=== PATIENT | female | born 1970 | race Caucasian/White ===

== ENCOUNTER → 2018-11-25 09:10 | Outpatient (CLI) | payer SELFPAY ==
[2018-11-25 09:39] LABS: Hemoglobin 14.5 g/dL (12.0-15.0); Mean Corp Hgb Conc 33.7 g/dL (32-36); Mean Corpuscular Hgb 31.9 pg (27.0-32.0); Mean Corpuscular Volume 94.7 fL (81-99); Mean Platelet Vol. 9.5 fl (6.2-12.0); Platelet Count 230 K/mm3 (150-450); RBC Distribution Width CV 11.9 % (11.6-14.6); RBC Distribution Width SD 41.5 fl (35.1-43.9); Red Blood Count 4.54 M/mm3 (4.2-5.4); White Blood Count 7.5 K/mm3 (4.4-11.0)
[2018-11-25 09:40] LABS: Color, Urine Straw (Yellow); Glucose, Dipstick Normal (Normal); Ketone-Dipstick Negative (Negative); Leukocyte Esterase-Dipstick Negative /ul (Negative); Nitrite-Dipstick Negative (Negative); Occult Blood-Urine Negative /ul (Negative); Protein-Dipstick Negative (Negative); Specific Gravity, Urine 1.005 (1.002-1.030); Urine Bilirubin Dipstick Negative (Negative); Urine Clarity Clear (Clear); Urine Urobilinogen Normal (Normal)
[2018-11-25 10:13] LABS: AST(SGOT) 17 U/L (15-37); Alanine Aminotransfer ALT/SGPT 34 U/L (13-56); Albumin, Serum 3.8 g/dL (3.2-5.0); Alkaline Phosphatase 51 U/L (45-117); Anion Gap 7 (5-15); BUN 18 mg/dL (7-18); BUN/Creat Ratio 23.1 RATIO (10-20); Calcium,Total 8.8 mg/dL (8.5-10.1); Chloride 109 mmol/L (98-107); Cholesterol 149 mg/dL (200); Creatinine, Serum 0.78 mg/dL (0.55-1.02); EST Glomerular Filtration Rate 83 mL/min (>60); Est Glom Filt Rate - Afr Amer 101 mL/min (>60); Globulin 3.8 g/dL (2.2-4.2); Glucose 98 mg/dL (74-106); High Density Lipoprotein 57 mg/dL; Potassium 4.1 mmol/L (3.5-5.1); Protein, Total 7.6 g/dL (6.4-8.2); Sodium Level 142 mmol/L (136-145); Thyroid Stim Hormone (TSH) 1.16 uIU/mL (0.358-3.74); Triglycerides 95 mg/dL; Very Low Density Lipoprotein 19 mg/dL (5-40)
[2018-11-25 10:14] LABS: Vitamin D,25 Hydroxy 32.5 ng/mL (29.95-100.01)
[2018-11-25 10:33] LABS: Hemoglobin A1c 5.8 % (4.2-6.3)
--- NOTE | 2018-11-26 18:05 | BFS_ITS ---
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 The maximal outside diameter of the proximal aorta The right maximum ICA velocity is 83.9/20.0 cm/s. measures 1.32 cm in the longitudinal axis. There is insignificant plaque formation noted on The maximal outside diameter of the proximal aorta the right side. measures 1.33 x 1.47 cm in the cross-sectional The left ECA velocity is less than 125 cm/s. axis. The left maximum ICA velocity is 64.3/26.5 cm/s. There is insignificant plaque formation noted on the left side. Medical History and Assessment The heart rate is 82 beats per minute. The heart rhythm is regular. The right blood pressure is 142/90. The left blood pressure is 138/90. The assessment was performed by Kati Perez RVT. Interpretation Summary Normal carotid artery screening (0 to 15% narrowing). Normal aortic ultrasound exam. Ordering Physician: Mary Anne Villalobos Performed By: Dimitry Perez RVT
--- NOTE | 2018-11-28 07:45 | EKG12_ITS ---
Test Reason : EXEC PHYSICAL Blood Pressure : / mmHG Vent. Rate : 085 BPM Atrial Rate : 085 BPM P-R Int : 156 ms QRS Dur : 080 ms QT Int : 362 ms P-R-T Axes : 048 020 030 degrees QTc Int : 430 ms Normal sinus rhythm Nonspecific ST abnormality Abnormal ECG Confirmed by LEOLA SCHMITT, ANAMIKA ([id number]), field map editor U[facility] MCFADDEN ([id number]) on 11/28/2018 2:14:09 PM Referred By: Mary Anne Villalobos Confirmed By:ANAMIKA BHAGAT MD
== END ==
PROVIDERS: Referring Provider Internal Medicine; Visit Provider Internal Medicine
DX: Z00.00 Encounter for general adult medical examination without abnormal findings (principal)
CPT/HCPCS: 80053; 80061; 81002; 82306; 83036; 83090; 84443; 85027; 93005

== ENCOUNTER 2019-02-25 08:19 | Day surgery (SDC) | payer SELFPAY ==
[2018-12-22 10:50] VITALS: BMI 31.2
--- NOTE | 2018-12-22 11:18 | HP_ITS ---
Intake Vital Signs 12/22/18 Body Mass Index (BMI) 31.2 12/22/18 Height 5 ft 4.5 in 12/22/18 Weight: 181 lb 12/22/18 Body Mass Index (BMI) 30.6 12/22/18 Blood Pressure 159/93 H 12/22/18 Blood Pressure Location Rt brachial 12/22/18 Respiratory Rate 18 12/22/18 Pulse Rate 83 12/22/18 Pulse Source Monitor 12/22/18 Temperature 98.2 F 12/22/18 Pulse Ox 97 12/22/18 Oxygen Delivery Method room air Intake Visit Reasons: abd pain/change in bowel habits Chief Complaint: Executive Physical Heart Surgeon Required: No Is patient in pain?: No Allergies No Known Allergies Allergy (Verified 12/22/18 10:50) Medications Calcium PO 11/27/18 [History Confirmed 12/22/18] Magnesium PO 11/27/18 [History Confirmed 12/22/18] omega 3,6,9 combination no.7 PO 11/27/18 [History Confirmed 12/22/18] PFSH Medical History Thyroid disease (Chronic) Goiter (Chronic) Back problem (Chronic) No history of Colonoscopy (Acute) Surgical History History of section (Acute) Family History Mother Hypertension Sister Hypertension Brother Hypertension Grandfather Esophageal cancer Grandmother CVA (cerebral vascular accident) Alzheimer disease Grandfather , Upper 80's Respiratory disease Father Benign colon polyp Social History (Updated 12/22/18 @ 11:18 by Amberly Lafleur MD) Smoking Status: Never smoker alcohol intake: never substance use type: does not use what type of physical activity do you participate in: walking frequency: 1-2 times per week HPI HPI HPI: TRINIDAD HIGGINS, is a 48 F who presents to the office today for HPI HPI Surgical H&P: Yes HPI: TRINIDAD HIGGINS, is a 48 F who presents to the office today for colonoscopy due to change of bowel habits alternating between constipation and diarrhea. Patient states this has gotten worse in the last year. She does have occasional cramping maybe once or twice a month with the diarrhea which is only brief and resolves on its own. Patient states that constipation may last for 2 to 3 days but may only occur once every 2 weeks. Patient is not sure much fiber she gets in her diet but does not think she gets enough. Patient does take magnesium daily. Patient denies any family history of colon cancer. Patient has never had a previous colonoscopy. ROS General General: No weight change, appetite, fatigue, colon cancer, breast cancer or weakness HEENT HEENT: No difficulty swallowing, eye injury, eye surgery, swollen glands or hoarseness Endo Endocrine: Yes thyroid disease; no diabetes mellitus, thyroid cancer, Hair loss, heat intolerance or cold intolerance Skin Skin: No rash or changing moles Breast Breast: No left breast lump, right breast lump, nipple discharge, breast pain, abnormal mammogram, abnormal US or breast enlargement Musc Musculoskeletal: Yes back problems; no arthritis, rheumatoid arthritis, gout or joint pain Cardio Cardiovascular: No murmur, pacemaker, heart disease, atrial fibrillation, high blood pressure, heart attack, heart stent, palpitations, shortness of breat with exertion or chest pain Psych Psychiatric: No depression, anxiety or hearing voices Resp Respiratory: No shortness of breath, No sleep apnea, No cough, No COPD, No asthma, No emphysema, No wheezing Gastro Gastrointestinal: Yes abdominal pain, No nausea or vomiting, Yes diarrhea, Yes constipation, No blood in stool, No acid reflux, No hemorrhoids, No ulcers, No gallbladder problem, No black,tarry stools Reji Hematologic: No blood thinners, No blood disorders, No bleeding, No anemia, No blood clots Neuro Neurologic: No system reviewed and no additional complaints, except as docu, No as per HPI, No abnormal walking, No abnormal hearing, No abnormal movements, No abnormal speech, No behavioral changes, No burning sensations, No confusion, No seizure-like activity, No unsteadiness, No dizziness, No localized weakness, No frequent falls, No headache(s), No lack of coordination, No loss of vision, No memory loss, No numbness, No other visual disturbances, No radiating pain, No restless legs, No sensory deficit, No fainting, No tingling, No tremor(s), No weakness, No other Exam Const General: cooperative, comfortable, no acute distress Chest Breast Palpation: No nipple discharge Resp Effort & Inspection: normal respiratory effort Cardio Rate: regular rate Heart Sounds: no murmurs GI Inspection: non-distended Palpation: soft, no guarding, nontender Assessment & Plan Problems 1. Constipation K59.00 2. Diarrhea R19.7 3. Screening for colon cancer Z12.11 Plan Discussed with patient I recommend her getting increase fiber in her diet which is about 25 g daily. This may improve her bowel habits which currently now alternate between diarrhea and constipation. Suggested supplements of high- fiber oatmeal, fiberwell vitafusion Gummies?2 Gummies equal 5 g, fiber one bars, etc. I have discussed the above with the patient. I have offered the patient colonoscopy for evaluation. I have explained the risks/benefits of the procedure and described the procedure. I have discussed the risks with the patient, including but not limited to: infection, bleeding, perforation of the GI tract requiring emergency surgery, inability to complete the procedure, injury to any internal organs, complications of anesthesia, etc. - the patient understands and agrees to proceed. I have answered all the patient's questions to the patient's satisfaction and the patient has no further questions. The patient has been given instructions for the colon cleansing preparation. One day of clears, MiraLAX Dulcolax split prep Amberly Lafleur M.D. Pager: [phone] [facility] [address] [place] [address], [address] [place] [address] Office: [phone] Orders Orders: Colonoscopy Today Plan Detail Follow Up We will schedule colonoscopy Coding Level of Care Code Off vis,new,level 3 Diagnoses Constipation K59.00 Diarrhea R19.7 Screening for colon cancer Z12.11 12/22/18 1118 <Electronically signed by Amberly Pastor am, MD> Date _ Amberly Lafleur MD
[2019-02-25 08:42] VITALS: BP 145/83; PULSE 91; RESP 16; TEMP 36.8; O2SAT 99; BMI 66.6
[2019-02-25] MEDS: Lactated Ringers 1,000 ML 100 ML IV (08:50)
[2019-02-25 09:14] VITALS: BMI 30.1
--- NOTE | 2019-02-25 09:18 | H&P.OPEN ---
History of Present Illness Date of Admission: 02/25/19 The patient is a 48 year old F patient presents for colonoscopy due to change in bowel habits which alternated between constipation diarrhea. Since the office visit patient states she is tried to change the amount of fiber and she is been doing well and having bowel movements daily and currently denies diarrhea. Patient denies any family history of colon cancer. Patient has never had a colonoscopy previously. Past Medical/Surgical History - Planned Operation Planned Operative Procedure/s: COLONOSCOPY Date of Operative Procedure: 02/25/19 Permit Signed: No S.O.S: No Is This Patient Having a Total Joint: No - Previous Hospitalizations/Surgeries HX Hospitalizations: No HX of Surgeries: CSECTION Any Problems With Anesthesia: No You/Your Family Experience Fever (Hyperthermia) With Anes: No Cholinesterase deficiency: No - Cardiovascular Hx Chest Pain within Last 2 months: No Hx of Irregular Heartbeat and/or Afib: No Hx Heart Attack: No Hx Congestive Heart Failure: No Hx Rheumatic Fever: No Hx Hypertension: No Hx Internal Defibrillator: No Hx Pacemaker: No Hx Cardiac Catheterization: No Hx Cardiac Surgery/Stents/Etc.: No Hx Stress Test: No HX Edema: No Hx Pain in Legs when Walking/Leg Cramps: No - Respiratory Chronic Cough: No HX of Shortness of Breath: No Hoarseness: No Hx Chronic Obstructive Pulmonary Disease (COPD): No Hx Asthma: No Hx Emphysema: No Hx Sleep Apnea: No Hx Oxygen Use at Home: No Hx Respiratory Tract Infection/Cold (presently): No - . Do You Snore Loudly (louder than talking or can be heard): No Do You Often Feel Tired/ Fatigued/ Sleepy Dring Daytime?: No Has Anyone Observed You Stop Breathing During Sleep?: No Result (for STOP score): Negative Hx Smoking: No Smoking Status: Never smoker - Gastrointestinal Hx Gastroesophageal Reflux: No Hx Gastrointestinal Disorders: No Hx Gastrointestinal Bleed: No Hx Ulcer: No Hx Hiatal Hernia: No Difficulty Chewing/Swallowing: No Recent Onset of Swallowing Problems: No Special diet followed at home: No Hx Unplanned Weight Loss of 20#: No HX Unplanned Weight Gain of 20#: No - Neurological Hx Seizures: No HX Syncope/Blackout Spells/Unconsciousness: No Hx CVA/Stroke: No Hx Transient Ischemic Attacks (TIA): No Hx Multiple Sclerosis: No Hx Parkinson's Disease: No Hx Head/Neck Injury: No Hx Headaches: No Hx Back Injury/Pain: Yes - BACK PAIN. Recent Onset of Speech Difficulty: No Restless Legs: No Does patient have nerve stimulator: No - Blood Disorder Hx Leukemia: No Bleeding Tendencies: No Hx Deep Vein Thrombosis: No Hx High Cholesterol: No Blood Transmitted Disease: No Hx Hepatitis: No Hx Cirrhosis: No Hx Anemia: No Hx Blood Disorders: No - Reproduction Are You Post Menopause: No - Genitourinary Hx Renal Disease: No - Musculoskeletal Hx Arthritis: No Hx Rheumatoid Arthritis: No Hx Gout: No Recent Onset of an Orthopedic Problem: No - Endocrine Hx Diabetes: No Thyroid Disease: Yes - THYROID BIOPSY BEFORE. NO MEDICATION Hx Steroid Therapy: No - Psycho/Social Hx Substance Use: No Hx Alcohol Use: No Hx Anxiety: No Hx Depression: No Mental Illness: No Hx Dementia: No - Miscellaneous Hx Cancer: No Recent Exposure to Contagious Disease: No Active MRSA: No Hx of C-Diff: No Any Loose Teeth: No Allergies No Known Allergies Allergy (Verified 02/25/19 08:41) - Discharge Is Pt Admitted From a Long Term, or a Senior Care: No Who Could Help: FAMILY After D/C, Where Do you Plan to Go: Return Home - Physical Exam Vitals/I&O's: Vital Signs Temp Pulse Resp BP Pulse Ox 98.3 F 91 16 145/83 H 99 02/25/19 08:42 02/25/19 08:42 02/25/19 08:42 02/25/19 08:42 02/25/19 08:42 Oxygen Delivery Method Room Air Weight: 181 lb Body Mass Index (BMI) 30.1 General: Alert, Oriented x3, Cooperative, No apparent distress HEENT: Atraumatic Lungs: Normal air movement Cardiovascular: Regular rate Abdomen: Soft, Non Tender, Non-Distended Extremities: No clubbing, No cyanosis, No edema Neurological: Cranial nerves II-XII grossly intact Psych/Mental Status: Normal Affect Current Medications Lactated Ringer's () 1,000 mls @ 100 mls/hr IV .Q10H SHAMEKA Last Admin: 02/25/19 08:50 Dose: 100 mls/hr Documented by: Assessment/Plan 48-year-old female with history of diarrhea/constipation Surgery Risks - Colonoscopy I discussed with the patient the risks of the procedure: Yes Risks Include but are not Limited To: Risks include but are not limited to: Bleeding, perforation requiring further surgery, inability to complete colonoscopy requiring barium enema. Patient no further questions this time.
[2019-02-25 10:04] VITALS: BP 125/81; BP 145/83; PULSE 85; RESP 16; TEMP 36.8; O2SAT 98
--- NOTE | 2019-02-25 10:08 | OP.COLON_ITS ---
Patient Name: Niurka Gant Procedure Date: 02/25/2019 9:22 AM Date of : 1970 Age: 48 Procedure: Colonoscopy Indications: Screening for colorectal malignant neoplasm Providers: Amberly Lafleur MD Referring MD: Angelic Arzola Medicines: Monitored Anesthesia Care Patient Profile: This is a 48 year old female. Last Colonoscopy: none. The patient's first colonoscopy is today. Complications: No immediate complications. Procedure: Pre-Anesthesia Assessment: - Prior to the procedure, a History and Physical was performed, and patient medications and allergies were reviewed. The patient's tolerance of previous anesthesia was also reviewed. The risks and benefits of the procedure and the sedation options and risks were discussed with the patient. All questions were answered, and informed consent was obtained. Prior Anticoagulants: The patient has taken no previous anticoagulant or antiplatelet agents. ASA Grade Assessment: II - A patient with mild systemic disease. After reviewing the risks and benefits, the patient was deemed in satisfactory condition to undergo the procedure. After I obtained informed consent, the scope was passed under direct vision. Throughout the procedure, the patient's blood pressure, pulse, and oxygen saturations were monitored continuously. The pediatric colonoscope was introduced through the anus and advanced to the cecum, identified by the appendiceal orifice, ileocecal valve and palpation. The colonoscopy was performed without difficulty. The patient tolerated the procedure well. The quality of the bowel preparation was good. Scope In: 9:43:50 AM Scope Withdrawal Time 0 hours 7 minutes 44 seconds Scope Out: 10:01:01 AM Total Procedure Duration Time 0 hours 17 minutes 11 seconds Findings: The perianal and digital rectal examinations were normal. Multiple small-mouthed diverticula were found in the sigmoid colon and descending colon. The entire examined colon appeared normal on direct and retroflexion views. Impression: - Diverticulosis in the sigmoid colon and in the descending colon. - The entire examined colon is normal on direct and retroflexion views. - No specimens collected. Recommendation: - Discharge patient to home. - High fiber diet. - Continue present medications. - Repeat colonoscopy in 10 years for screening purposes. Procedure Code(s): --- Professional --- G0121, PT, Colorectal cancer screening; colonoscopy on individual not meeting criteria for high risk Diagnosis Code(s): --- Professional --- Z12.11, Encounter for screening for malignant neoplasm of colon K57.30, Diverticulosis of large intestine without perforation or abscess without bleeding CPT copyright 2017 [employer]. All rights reserved. The codes documented in this report are preliminary and upon counter intelligence technician review may be revised to meet current compliance requirements. MD Amberly Alvarez MD 02/25/2019 10:08:37 AM This report has been signed electronically. Number of Addenda: 0 Note Initiated On: 02/25/2019 9:22 AM
[2019-02-25 10:10] VITALS: BP 133/88; BP 145/83; PULSE 78; RESP 16; O2SAT 100
[2019-02-25 10:15] VITALS: BP 133/87; BP 145/83; PULSE 80; RESP 16; O2SAT 100
[2019-02-25 10:20] VITALS: BP 137/86; BP 145/83; PULSE 80; RESP 16; TEMP 36.5; O2SAT 99
[2019-02-25 10:35] VITALS: BP 145/83
== END 2019-02-25 10:51 | disposition home or self-care (01) ==
LOC: EN 08:26 → AC 08:27
PROVIDERS: Family Provider Family Medicine; PCP Family Medicine; Referring Provider Family Medicine; Visit Provider Surgery
PROC: 0DJD8ZZ Inspection of Lower Intestinal Tract, Via Natural or Artificial Opening Endoscopic (ICD-10-PCS; CPT 45378; principal; 2019-02-25 09:55)
DX: Z12.11 Encounter for screening for malignant neoplasm of colon (principal); K57.30 Diverticulosis of large intestine without perforation or abscess without bleeding
CPT/HCPCS: 45378; J7120; J2405